=== PATIENT | female | born 2000 | race Caucasian/White ===

== ENCOUNTER 2019-06-03 07:25 | Emergency (ER) | payer BC, OTHER ==
[~2019-06-03] VITALS: Ht 165.1 cm; Wt 136.1 kg
[2019-06-03] MEDS ORDERED: AUGMENTIN 875-1 EACH PO (08:13)
[2019-06-03 08:41] VITALS: BP 151/98
== END 2019-06-03 08:42 | disposition home or self-care (01) ==
LOC: ER 07:25
DX: S50.12XA Contusion of left forearm, initial encounter (principal); Y04.1XXA Assault by human bite, initial encounter; Y92.89 Other specified places as the place of occurrence of the external cause; Y93.89 Activity, other specified; Y99.0 Civilian activity done for income or pay

== ENCOUNTER 2020-05-08 10:51 | Emergency (ER) | payer OTHER ==
[~2020-05-08] VITALS: Ht 165.1 cm; Wt 90.7 kg
[~2020-05-08 10:51] MED LIST: AUGMENTIN 875-1 EACH PO
[2020-05-08 12:06] LABS: HEMATOCRIT 38.9 % (37.0-47.0); HEMOGLOBIN 12.9 gm/dL (12.0-15.0); MCH 28.5 pg (26.0-34.0); MCHC 33.2 g/dL (28.0-37.0); MCV 85.9 fL (80.0-100.0); RBC 4.53 mil/uL (4.20-5.00); RDW 14.6 % (10.5-14.5); WBC 12.8 thou/uL (4.0-11.0)
[2020-05-08 12:09] LABS: CALCIUM 9.2 mg/dL (8.5-10.1); CREATININE 0.7 mg/dL (0.6-1.0); POTASSIUM 3.9 mmol/L (3.5-5.1)
[2020-05-08 12:16] LABS: TOTAL BILIRUBIN 0.2 mg/dL (0.2-1.0); TOTAL PROTEIN 8.8 g/dL (6.4-8.2)
[2020-05-08 12:44] LABS: ABSOLUTE NEUTROPHILS 8.3 thou/uL (1.4-8.2); ANISOCYTOSIS 1+; PLATELET COUNT 339 thou/uL (150-400)
--- NOTE | 2020-05-08 13:26 | EKG ---
[facility] [place] [address] ELECTROCARDIOGRAM REPORT Name: EUSEBIO CHAMPAGNE Room #: REG [facility]#: [id number] Admission: 05/08/20 Attend Phys: Discharge: Date of : 89 Report #: [id number] THIS REPORT FOR: cc: Susu Fox MD, Nora P. MD Lundgren,Shay Rojas MD [facility] ~ THIS REPORT FOR: //name// [facility] ED Test Date: 2020-05-08 Test Time: 11:41:03 Pat Name: EUSEBIO CHAMPAGNE Department: Room: Gender: F Appliance Mechanic: [facility] : 2000 Requested By: Bro Ventura Order Number: [id number] MD: Shay Bello Measurements Intervals [place] Rate: 88 P: -14 TN: 167 QRS: -12 QRSD: 85 T: 4 QT: 400 QTc: 484 Interpretive Statements Sinus rhythm Normal tracing No previous ECG available for comparison Electronically Signed On 05-08-2020 13:26:25 CDT by Shay Bello [email or web address] <ELECTRONICALLY SIGNED> By: Shay Bello MD, [facility] 05/08/20 1326 1141 1141 Shay Bello MD, FAC /EPI
[2020-05-08 13:29] LABS: URINE BILIRUBIN NEGATIVE (Negative); URINE BLOOD TRACE (Negative); URINE CLARITY CLEAR; URINE COLOR YELLOW; URINE GLUCOSE-RANDOM* NEGATIVE (Negative); URINE KETONES NEGATIVE (Negative); URINE LEUKOCYTES-REFLEX NEGATIVE (Negative); URINE NITRITE-REFLEX NEGATIVE (Negative); URINE PROTEIN (DIPSTICK) NEGATIVE (Negative); URINE UROBILINOGEN 0.2 E.U./dl (0.2-1.0)
[2020-05-08 13:59] VITALS: BP 149/58
== END 2020-05-08 14:05 | disposition home or self-care (01) ==
LOC: ER 10:51
PROVIDERS: Physician Assistant
DX: R42 Dizziness and giddiness (principal); R10.13 Epigastric pain; R11.0 Nausea